=== PATIENT | female | born 1965 | race Caucasian/White ===

== ENCOUNTER → 2017-07-19 | Outpatient (CLI) | payer BC ==
[~2017-07-19] MED LIST: FLUO40CA8 PO; LEVO-366 PO
--- NOTE | 2017-07-19 15:48 | MAMMOGRAPHY REPORT ---
BILATERAL DIGITAL DIAGNOSTIC MAMMOGRAM TOMOSYNTHESIS WITH CAD AND TARGETED LEFT ULTRASOUND: 07/19/2017 CLINICAL HISTORY: Short interval follow-up of left breast masses. Due for routine mammography of the right breast. The patient reports no palpable lumps or other new complaints. TECHNIQUE: Breast tomosynthesis in addition to standard 2D mammography was performed. Current study was also evaluated with a Computer Aided Detection (CAD) system. Bilateral CC and MLO 2-D and tomosy nthesis images were obtained. COMPARISON: Comparison is made to exams dated: 02/13/2017 ultrasound, 02/13/2017 mammogram - [facility], 05/16/2016 mammogram, and 04/08/2014 mammogram - [facility] BREAST COMPOSITION: There are scattered areas of fibroglandular density in both breasts. FINDINGS: There are no suspicious masses, calcifications, or areas of architectural distortion noted in either breast mammographically. There has been no significant interval change compared to prior exams. A few small round/oval circumscribed benign-appearing masses scattered within the left breast , best seen on the tomosynthesis images, are unchanged. 10 mm asymmetry seen in the left breast midd le depth on the cc view on the posterior nipple line appears stable compared to prior exams including the 2014 and 2012 exam, and felt to represent normal fibroglandular tissue. A few scattered bilater al benign-appearing calcifications are unchanged. Targeted ultrasound was performed of the area of the previously seen left breast masses. In the left breast at 12:00 periareolar region, again noted is an oval circumscribed hypoechoic benign-appearing mass which measures 5 x 3 x 3 mm, unchanged compared to the February 2017 exam. In the left 12:00 breast , 2 cm from the nipple, there are two adjacent round circumscribed hypoechoic masses, one of which me asures 2 x 3 mm and the other of which measures 2 x 2 mm. These are newly visualized. In the left b reast at 12:30, 2 cm from the nipple, there is also a round circumscribed hypoechoic 3 x 3 millimeter mass which is also newly visualized. In the left breast at 3:00, 5 cm from the nipple, there is a r ound circumscribed hypoechoic mass which measures 3 x 4 mm, stable compared to the February 2017 exam. In the left breast at 3:00, 2 cm from the nipple, there is an oval circumscribed hypoechoic 6 x 3 mm ma ss which is newly visualized. The masses are similar in appearance and are probably benign and may r epresent benign solid masses such as fibroadenomas or complicated cysts. IMPRESSION: ACR-BI-RADS CATEGORY 3: PROBABLY BENIGN, TARGETED ULTRASOUND ACR-BI-RADS CATEGORY 3: PRO BABLY BENIGN 1. Multiple similar-appearing circumscribed hypoechoic masses in the left breast on ultrasound, two o f which are stable compared to the February 2017 exam and a few others of which are newly visualized. The masses are probably benign and likely represent benign solid masses such as fibroadenomas or complic ated cysts. Recommend follow-up diagnostic tomosynthesis mammograms and ultrasound of the left breas t in 6 months to confirm longer stability. 2. No mammographic evidence of malignancy in the right breast. Recommend annual follow-up. The patient has been verbally notified of the results. Approximately 10% of breast cancers are not detected with mammography. A negative mammographic report should not delay biopsy if a clinically suggestive mass is present. Tamra rIene M.D. ah/:07/19/2017 10:16:35 Outreach Representative: Bettina Santos RT(R)(M), [facility] letter sent: Follow Up Recommended 3 BI-RADS Code: ACR-BI-RADS Category 3: Probably Benign Ultrasound BI-RADS: ACR-BI-RADS Category 3: Pr obably Benign
== END | disposition home or self-care (01) ==
LOC: C.MAMM 08:41
PROVIDERS: ATTEND Family Medicine
DX: N63.0 Unspecified lump in unspecified breast (principal)

== ENCOUNTER → 2017-09-09 | Outpatient (CLI) | payer OTHER, BC ==
--- NOTE | 2017-09-09 12:13 | DIAGNOSTIC IMAGING REPORT ---
RIGHT KNEE 2 VIEWS CLINICAL HISTORY: Right knee pain. FINDINGS: AP and lateral views of the right knee are compared to study dated 09/17/2011. The skeletal structures are well mineralized. No fracture is seen. There is minimal tricompartmental degenerative joint space narrowing. A patellar enthesophyte is observed. No joint effusion is identified. The overlying soft tissues are within normal limits. IMPRESSION: No acute bony abnormality is seen in the right knee. Electronically signed by: Theodore Polanco M.D. 09/09/2017 12:12 PM Dictated Date/Time: 09/09/2017 12:11 PM
== END | disposition home or self-care (01) ==
LOC: C.RAD1850 11:42
PROVIDERS: ATTEND Nurse Practitioner Adult Health
DX: M25.561 Pain in right knee (principal); W19.XXXA Unspecified fall, initial encounter

== ENCOUNTER → 2017-10-30 | Outpatient (CLI) | payer OTHER | END | disposition home or self-care (01) | LOC: C.RDSM 13:26 | PROVIDERS: ATTEND Physical Medicine & Rehabilitation Sports Medicine | DX: M25.561 Pain in right knee (principal) ==

== ENCOUNTER → 2018-01-24 | Outpatient (CLI) | payer OTHER ==
--- NOTE | 2018-01-27 07:46 | MAMMOGRAPHY REPORT ---
UNILATERAL LEFT DIGITAL DIAGNOSTIC MAMMOGRAM TOMOSYNTHESIS WITH CAD AND TARGETED LEFT ULTRASOUND: 01/12 CLINICAL HISTORY: 6 Month Follow-up Left. TECHNIQUE: Breast tomosynthesis in addition to standard 2D mammography was performed. Current study was also evaluated with a Computer Aided Detection (CAD) system. Left CC and MLO 2D and tomosynthesi s images were obtained. COMPARISON: Comparison is made to exams dated: 07/19/2017 ultrasound, 07/19/2017 mammogram, 02/13/2017 u ltrasound, 02/13/2017 mammogram - [facility], 05/16/2016 mammogram, and 04/08/2014 mammo [facility]. BREAST COMPOSITION: There are scattered areas of fibroglandular density in the left breast. FINDINGS: There are no suspicious masses, calcifications, or areas of architectural distortion noted within the left breast mammographically. There has been no significant interval change compared to p rior exams. A few small circumscribed benign-appearing masses scattered within the left breast, best seen on the tomosynthesis images, are unchanged. Targeted ultrasound was performed of the previously seen left breast masses. In the left 12:00 peria reolar breast, again noted is an oval circumscribed hypoechoic benign-appearing mass which measures 5 x 4 mm and is unchanged dating back to the February 2017 exam. In the left 12:00 breast, 2 cm from the n ipple, there is a round circumscribed hypoechoic mass which measures 2 x 3 mm and appears stable comp ared to the July 2017 exam (previously labeled 12:30 breast). An adjacent circumscribed benign-ap pearing hypoechoic 4 x 4 mm mass is also seen. In the left breast at 3:00, 2 cm from the nipple, aga in noted is an oval hypoechoic circumscribed benign-appearing mass which measures 5 x 3 x 3 mm which is stable compared to the July 2017 exam. In the left breast at 3:00, 5 cm from the nipple, again noted is a round circumscribed hypoechoic mass which measures 3 x 3 x 2 mm and is stable compared to the February 2017 exam. The masses are probably benign and may represent complicated cysts or solid mass es such as fibroadenomas. IMPRESSION: ACR-BI-RADS CATEGORY 3: PROBABLY BENIGN, TARGETED ULTRASOUND ACR-BI-RADS CATEGORY 3: PRO BABLY BENIGN Multiple small circumscribed benign-appearing masses within the left 12 to 3:00 breast on ultrasound, some of which are stable compared to the July 2017 exam and others of which are stable compared t o the February 2017 exam. The masses are probably benign and may represent complicated cysts or fibroaden omas. Recommend bilateral diagnostic tomosynthesis mammograms and repeat targeted ultrasound in 6 mo nths, to reevaluate the left breast masses and for routine mammography of the right breast. The patient has been verbally notified of the results. Approximately 10% of breast cancers are not detected with mammography. A negative mammographic report should not delay biopsy if a clinically suggestive mass is present. Tamra Irene M.D. ah/:01/24/2018 15:34:10 Jacker Feeder: Shayla ANDRE(Deniz)(Unique), [facility] letter sent: Follow Up Recommended 3 BI-RADS Code: ACR-BI-RADS Category 3: Probably Benign Ultrasound BI-RADS: ACR-BI-RADS Category 3: Pr obably Benign
== END | disposition home or self-care (01) ==
LOC: C.MAMM 08:50
PROVIDERS: ATTEND Family Medicine
DX: N63.20 Unspecified lump in the left breast, unspecified quadrant (principal)